=== PATIENT | female | born 1975 | race Caucasian/White ===

== ENCOUNTER → 2016-11-29 | Outpatient (CLI) | payer OTHER ==
[~2016-11-29] VITALS: Ht 162.6 cm; Wt 68.0 kg
[~2016-11-29] MED LIST: IBUPROFEN800 MG PO; MAGNESIUM OXID200 MG PO; Motrin PO; PRENATAL TABLE1 EAC3 PO; Percocet 5/325,Endoc PO; Prefera-OB Plus DHA PO
[2016-11-29 14:00] VITALS: BP 118/62
== END | disposition home or self-care (01) ==
LOC: IVINF 13:52
DX: Z67.11 Type A blood, Rh negative (principal); Z33.1 Pregnant state, incidental; Z3A.28 28 weeks gestation of pregnancy
CPT/HCPCS: 96372; J2790

== ENCOUNTER 2017-02-19 04:58 | Inpatient (IN) | payer OTHER ==
[~2017-02-19] VITALS: Ht 162.6 cm; Wt 71.8 kg
[2017-02-19] VITALS (12 sets, daily range): BP systolic 105–126; BP diastolic 57–81
[2017-02-19 05:36] LABS: BASOPHIL COUNT 0.1 K/uL (0-0.1); EOSINOPHIL (%) 1.1 % (0-5); EOSINOPHIL COUNT 0.2 K/uL (0-0.3); HEMATOCRIT 40.2 % (36.0-46.0); IMMATURE GRANULOCYTE (%) 2.8 % (0.0-0.7); IMMATURE GRANULOCYTE COUNT 0.4 K/uL; INSTRUMENT ABS NEUTROPHIL CT 11.1 K/uL; MCH 28.6 PG (29.0-34.0); MCHC 32.8 G/DL (30.0-36.0); MEAN PLAT.VOLUME 11.4 uM^3 (9.5-12.4); MONOCYTE (%) 6.1 % (3-12); NEUTROPHIL (%) 70.6 % (45-76); NEUTROPHIL COUNT 11.1 K/uL (1.8-6.4); PLATELET COUNT 272 K/uL (156-360); RBC DIS.WIDTH-CV 13.8 % (11.8-14.6); RBC DIS.WIDTH-SD 43.4 % (39-53); RED BLOOD COUNT 4.62 M/uL (3.80-5.20); WHITE BLOOD COUNT 15.8 K/uL (4.1-10.2)
[2017-02-19] MEDS ORDERED: MOTRIN800 MG PO (08:11)
[2017-02-20 07:23] VITALS: BP 118/76
[2017-02-20 15:03] VITALS: BP 113/72
[2017-02-20] MEDS ORDERED: BREAST PUMP MC (17:15)
== END 2017-02-20 18:00 | disposition home or self-care (01) | DRG 775 ==
LOC: LDRP-OP 04:58 → 2WEST 04:59 → LDRP-OP 03-22 15:22
PROVIDERS: Nurse Practitioner
PROC: 10E0XZZ Delivery of Products of Conception, External Approach (ICD-10-PCS; principal; 2017-02-19)
DX: O48.0 Post-term pregnancy (principal); Z3A.40 40 weeks gestation of pregnancy; Z37.0 Single live birth
CPT/HCPCS: 83030; 85025; 86900; 86901; J2790; J7120

== ENCOUNTER 2017-09-06 08:12 | Emergency (ER) | payer OTHER ==
[~2017-09-06] VITALS: Ht 162.6 cm; Wt 61.3 kg
[~2017-09-06 08:12] MED LIST changes: +BREAST PUMP MC; +MOTRIN800 MG PO
[2017-09-06] MEDS ORDERED: MOTRIN600 MG PO (10:19)
[2017-09-06 10:55] VITALS: BP 120/62
== END 2017-09-06 10:56 | disposition home or self-care (01) ==
LOC: EME 08:12
PROC: 2W3CX1Z Immobilization of Right Lower Arm using Splint (ICD-10-PCS; principal; 2017-09-06)
DX: S52.571A Other intraarticular fracture of lower end of right radius, initial encounter for closed fracture (principal); S13.9XXA Sprain of joints and ligaments of unspecified parts of neck, initial encounter; V43.52XA Car driver injured in collision with other type car in traffic accident, initial encounter; Y92.410 Unspecified street and highway as the place of occurrence of the external cause
CPT/HCPCS: 72040; 73110; 99281; 99283